=== PATIENT | female | born 1970 | race Caucasian/White ===

== ENCOUNTER 2018-04-11 09:54 | Emergency (ER) | payer OTHER ==
[~2018-04-11] VITALS: Ht 167.6 cm; Wt 75.0 kg
[2018-04-11 10:03] VITALS: Ht 167.6 cm; Wt 75.0 kg
[2018-04-11] MEDS ORDERED: AMOXICILLIN500 M1 PO (10:26)
[2018-04-11] MEDS ORDERED: SUDAFED 30 MG T30 MG PO (10:26)
[2018-04-11 10:58] VITALS: BP 122/78
== END 2018-04-11 10:59 | disposition home or self-care (01) ==
LOC: D.ER 09:54
DX: J06.9 Acute upper respiratory infection, unspecified (principal); J01.90 Acute sinusitis, unspecified

== ENCOUNTER → 2018-05-20 09:03 | Outpatient (CLI) | payer OTHER ==
[2018-04-11 10:03] VITALS: BMI 26.7
[~2018-05-20 09:03] MED LIST: AMOXICILLIN500 M1 PO; SUDAFED 30 MG T30 MG PO
[2018-05-20 09:41] LABS: BASOPHILS 0.6 % (0-2); EOSINOPHILS 2.1 % (0-7); HEMOGLOBIN 12.9 g/dL (12-16); IMMATURE GRANULOCYTES 0.2 % (0-5); LYMPHOCYTES 33.3 % (15-50); MCH 31.2 pg (26.0-34.0); MCHC 33.9 g/dL (31.0-37.0); MEAN PLATELET VOLUME 9.7 fL (7.4-10.4); MONOCYTES 8.7 % (2-11); NEUTROPHILS 55.1 % (40-80); PLATELET COUNT 227 10x3/uL (130-400); RBC 4.13 10x6/uL (4.00-5.40); RDW 12.1 % (11.5-14.5); WBC 5.2 10x3/uL (4.8-10.8)
[2018-05-20 09:48] LABS: INR 0.9 (0.85-1.17); PROTIME 11.7 SECONDS (11.6-15.0)
[2018-05-20 09:59] LABS: CALC OSMOLALITY 283 mosm/kg (275-300); CALCIUM 8.4 mg/dL (8.5-10.1); CARBON DIOXIDE 23.8 mmol/L (21.0-32.0); CHLORIDE - SERUM 105 mmol/L (98-107); CREATININE - SERUM 0.5 mg/dL (0.6-1.3); GLUCOSE 94 mg/dL (74-106); POTASSIUM - SERUM 4.5 mmol/L (3.5-5.1); SODIUM 142 mmol/L (136-145); UREA NITROGEN 15 mg/dL (7-18); eGFR NON AFRICAN AMERICAN > 90 mL/min (90-120)
== END | disposition home or self-care (01) ==
LOC: D.RAD 09:03
PROVIDERS: ATTEND Specialist
DX: Z01.812 Encounter for preprocedural laboratory examination (principal); I10 Essential (primary) hypertension; T14.90XA Injury, unspecified, initial encounter; Z79.1 Long term (current) use of non-steroidal anti-inflammatories (NSAID)